=== PATIENT | female | born 1970 | race Caucasian/White ===

== ENCOUNTER 2019-10-31 17:47 | Outpatient (CLI) | payer OTHER, SELFPAY | END 2019-10-31 17:48 | disposition home or self-care (01) | PROVIDERS: Visit Provider Surgery | DX: Z01.812 Encounter for preprocedural laboratory examination (principal) | CPT/HCPCS: 36415; 86850; 86900; 86901 ==

== ENCOUNTER 2019-11-06 00:42 | Outpatient (CLI) | payer OTHER, SELFPAY ==
[2019-11-06 17:00] LABS: SARS-CoV-2 RNA PCR Negative
== END 2019-11-06 00:43 | disposition home or self-care (01) ==
LOC: ANHCOVIDDT 00:42
PROVIDERS: Visit Provider Surgery
DX: Z20.828 Contact with and (suspected) exposure to other viral communicable diseases (principal); Z01.812 Encounter for preprocedural laboratory examination
CPT/HCPCS: 87635; C9803; U0003

== ENCOUNTER 2019-11-08 00:58 | Day surgery (SDC) | payer OTHER, SELFPAY ==
[2019-10-26 09:00] VITALS: BMI 20.3
[2019-11-08] VITALS (9 sets, daily range): BP systolic 100–136; BP diastolic 65–87; PULSE 65–110; RESP 12–14; TEMP 36.2–36.9; O2SAT 96–100
[2019-11-08] MEDS: LACTATED RINGERS 1,000 ML 30 ML IV CONT ×2 (10:05→12:37)
--- NOTE | 2019-11-08 10:14 | WPDANESEPPF ---
Anes - Initial Pre Proc Eval Procedure: Operation Date: 11/08/19 11:30 Proposed Procedures p Laparoscopic Right Inguinal Hernia Repair With Mesh, Davinci Assisted - Art Mccauley DO Date/Time: 11/08/19 10:14 Surgeon: Art Mccauley DO Pre Op Diagnosis: right inguinal hernia Patient Data Age: 48 Gender: F Height: 5 ft 7 in Weight: 58.97 kg Allergies Allergy/AdvReac Type Severity Reaction Status Date / Time ibuprofen Allergy Unknown Hives / Verified 10/26/19 09:01 Red Face Home Medications Medication Instructions Recorded Confirmed Type clonazepam 1 mg tablet 0.5 mg PO QPM 10/20/19 11/08/19 History sertraline 100 mg tablet 100 mg PO QPM 10/20/19 11/08/19 History Patient hx anesthesia problems: none Family hx anesthesia problems: none [facility] Past Medical History Medical History (Updated 11/08/19 @ 10:14 by Silvio Corley MD) Anxiety Depression Surgical History Surgical History Colonoscopy planned 2018 x2 H/O lymph node biopsy 2016 H/O myringotomy 1977 History of laparoscopy 1999 Social History Social History Smoking status: Former smoker Tobacco type: cigarettes Alcohol intake: current Substance use: never Additional occupation/education comments: [employer] Gender identity (if verbalized by the patient): Female Anes - Eval Final PreProcedure Day of Procedure 11/08/19 10:14 Patient weight: normal Heart: regular rate and rhythm Lungs: clear to auscultation Airway: Mallampati scale class III Neurological: alert and oriented Last oral intake: >/= 8 hours ASA classification: II Emergent: no Anesthetic plan: proceed Anesthesia type and monitoring: general ETT and standard monitoring Informed Consent: The patient's anesthetic plan and its attendant risks and benefits were discussed with the patient/family/POA. Questions were solicited and answers provided to the satisfaction of the patient/family/POA.
--- NOTE | 2019-11-08 10:45 | WPDHPUPDATE1 ---
History and Physical Update Update Date/Time: 11/08/19 10:45 History and Physical has been reviewed, including an updated exam of the patient. There are NO changes in the patient's condition. Risks, benefits, and alternatives have been discussed and questions answered. Patient agrees to proceed with procedure.
[2019-11-08] MEDS: ceFAZolin 2 GM/D5W 50 ML 2 GM/50 ML BAG IVPB (11:08)
[2019-11-08] MEDS: BUPIVACAINE/EPINEPHRINE 0.5% 30 ML VIAL INFILTRATE (11:43)
--- NOTE | 2019-11-08 12:28 | PM.PROC ---
Procedure Note - Detailed Date of procedure: 11/08/19 Pre-op diagnosis: right inguinal hernia Post-op diagnosis: same (Indirect right inguinal hernia) Procedure performed: Laparoscopic right inguinal hernia repair with Progrip mesh, da Garrett assisted Description of procedure: Procedure as well as risks, benefits, and alternatives were discussed with the patient. Written consent was obtained and placed in chart prior to procedure. Patient was brought back to surgical suite. She was placed supine on operating table. Time-out was done to confirm patient and procedure. She was then intubated by Anesthesia Department. Her abdomen was prepped and draped in sterile fashion using chlorhexidine prep. 0.5% bupivacaine with epinephrine was infiltrated at each location for incision. A 12 millimeter transverse incision was made just superior to the umbilicus using a 15 blade scalpel. Blunt dissection was carried out down to the linea alba. A vertical incision was made at the linea alba using a 15 blade scalpel. The peritoneum was then bluntly entered. A 12 millimeter trocar was inserted and carbon dioxide insufflation was used to create a pneumoperitoneum. A camera was inserted and the abdominal cavity was inspected. The patient was placed in slight Trendelenburg position. An 8 millimeter incision was made on the right lateral abdomen and an 8 millimeter trocar was inserted under direct visualization. Another 8 millimeter incision was made in the left lateral abdomen and an 8 millimeter trocar was inserted under direct visualization. The robotic arms were brought up to the patient's bedside and secured to the ports. The camera and instruments were inserted. I then moved over to the robotic console and took control of the camera and instruments. After careful inspection of the abdominal cavity, I began scoring the peritoneum along the right lower quadrant using scissors with electrocautery. The preperitoneal plane was entered and this was carefully dissected caudally along the inferior epigastric vessels. Careful dissection with scissors with electrocautery and blunt dissection was used to continue this dissection. I dissected far enough laterally to allow for mesh placement, and also dissected medially to identify the pubic arch and Jorge's ligament. The hernia sac was identified and carefully dissected posteriorly. The round ligament was transected using electrocautery on the right side to allow for adequate mobilization of the hernia sac and peritoneum posteriorly. Once an adequate pocket was created, I then placed the mesh within the preperitoneal pocket and carefully unfolded it. The mesh was centered on the hernia defect with adequate overlap circumferentially. The inferior edge of the mesh was inspected to ensure that it was far enough away from the peritoneal edge. The mesh appeared in proper position overlying the entire myopectineal orifice. The peritoneum was then closed over the mesh using a 3-0 V-lock running absorbable suture. The robotic instruments were removed. The robotic arms were disengaged from the ports and moved away from the bedside. The patient was flattened out in bed, the ports were removed under direct visualization, and the pneumoperitoneum was released. The fascia of the umbilical incision was approximated using an 0 Vicryl [id number] suture. The skin of the incisions was approximated using 4-0 Monocryl subcuticular suture, and Exofin glue was applied on top. The patient was awakened from anesthesia, extubated, and transferred to recovery. Implants: Progrip Mesh 10cm x 15cm Anesthesia: GETA and local (0.5% bupivicaine with epi) Surgeon: Art Mccauley DO Estimated blood loss (mL): 5 Drains: No Packing: No Pathology: none sent Complications: No immediate complications Condition: stable Disposition: same day Findings: Rosi is a 48 y/o female who presents with right sided abdominal pain after BM's. She reports experi
[2019-11-08] MEDS: HYDROMORPHONE HCL 1 MG/ML INJ 0.5 MG IV PUSH ×2 (13:11→13:19)
--- NOTE | 2019-11-08 13:39 | SUR.PHASEI ---
SPOUSE UPDATED. PT READY TO GO TO [facility]
== END 2019-11-08 14:51 | disposition home or self-care (01) ==
PROVIDERS: Visit Provider Surgery
PROC: 8E0Y4CZ Robotic Assisted Procedure of Lower Extremity, Percutaneous Endoscopic Approach (ICD-10-PCS; CPT 49650; principal; 2019-11-08 11:30)
DX: K40.90 Unilateral inguinal hernia, without obstruction or gangrene, not specified as recurrent (principal); F41.8 Other specified anxiety disorders; Z87.891 Personal history of nicotine dependence
CPT/HCPCS: 49650; S2900; A9270; C1781; J0330; J0690; J1100; J1170; J2250; J2405; J2704; J2710; J3010; J7120

== ENCOUNTER → 2020-01-11 08:10 | Outpatient (CLI) | payer OTHER, SELFPAY ==
--- NOTE | ~2020-01-11 | US_ITS ---
EXAMINATION: US abdomen limited DATE: 01/11/2020 08:43 INDICATION: Bloating and abdominal pain, right upper quadrant pain TECHNIQUE: Multiple grayscale and Doppler ultrasound images of the abdomen were obtained. COMPARISON: 11/11/2017 FINDINGS: The head, body, and tail of the pancreas are normal. The liver is normal with normal echoge nicity and echotexture. No surface nodularity. Normal hepatopetal flow in the main portal vein. The g allbladder is normal with no abnormal wall thickening, pericholecystic fluid or stones. The normal co mmon bile duct measures 3 mm. There was no sonographic Tiwari sign. IMPRESSION: 1. Normal sonographic study of the gallbladder. Reviewed, dictated and finalized at location A.
== END ==
PROVIDERS: Visit Provider Surgery
DX: R10.31 Right lower quadrant pain (principal); R14.0 Abdominal distension (gaseous)
CPT/HCPCS: 76705

== ENCOUNTER 2020-02-15 08:37 | Outpatient (CLI) | payer OTHER, SELFPAY ==
--- NOTE | ~2020-02-15 | NM_ITS ---
EXAMINATION: NM hepatobiliary w pharm DATE: 02/15/2020 11:43 INDICATION: Unspecified abdominal pain. COMPARISON: Ultrasound 01/11/2020, CT abdomen and pelvis 12/28/2016 TECHNIQUE: 5 mCi Tc-99m mebrofenin (Choletec) was administered intravenously. Scintigraphic images o f the abdomen were obtained for one hour. Then, 1 mcg sincalide (Kinevac) IV was administered, and im aging was continued for 30 minutes. FINDINGS: There is normal clearance of radiotracer from the blood pool. There is homogeneous tracer u ptake by the liver. Activity progresses to the bowel and gallbladder. Gallbladder ejection fraction (GBEF) was 57%. Note that most patients with gallbladder dysfunction have GBEF < 35%, which overlaps with the broad normal range of 10-90%. IMPRESSION: 1. Normal hepatobiliary scintigraphy. Reviewed, dictated and finalized at location A.
== END 2020-02-15 08:38 | disposition home or self-care (01) ==
LOC: ANHIMG 08:39
PROVIDERS: Visit Provider Surgery
DX: R10.9 Unspecified abdominal pain (principal)
CPT/HCPCS: 78227; A9537; J2805

== ENCOUNTER → 2020-10-11 07:54 | Outpatient (CLI) | payer OTHER, SELFPAY ==
--- NOTE | ~2020-10-11 | MMUS_ITS ---
EXAMINATION: MM diagnostic conrad BI w brittany, US breast LT limited HISTORY: Follow-up left breast masses TECHNIQUE: Additional 3-D tomosynthesis images of the breasts were performed and synthetic 2-D images were generated. CAD analysis was submitted and interpreted. High resolution Limited left breast ultr asound was performed. COMPARISON: Comparison to multiple prior studies sequentially, with oldest reviewed study dated 06/2017. BREAST PARENCHYMAL COMPOSITION: The breasts are extremely dense, which lowers the sensitivity of mamm ography. FINDINGS: MAMMOGRAPHIC FINDINGS: There are no suspicious masses, calcifications or architectural distortion in either breast to sugges t malignancy. ULTRASOUND: Limited left breast ultrasound: There are multiple simple cysts scattered throughout the left breast. No suspicious masses are visualized by ultrasound to suggest malignancy. IMPRESSION: 1. No evidence for malignancy in either breast. Benign findings. 2. Routine yearly screening mammogram and regular clinical breast examination are recommended. BI-RADS Category 2: Benign finding(s). Reviewed, dictated and finalized at location A. IMPRESSION: 1. No evidence for malignancy in either breast. Benign findings. 2. Routine yearly screening mammogram and regular clinical breast examination a re recommended. BI-RADS Category 2: Benign finding(s).
== END ==
PROVIDERS: Visit Provider Obstetrics & Gynecology Gynecology
DX: R92.8 Other abnormal and inconclusive findings on diagnostic imaging of breast (principal)
CPT/HCPCS: 76642; 77062; 77066; G0279

== ENCOUNTER → 2021-04-22 08:29 | Outpatient (CLI) | payer OTHER, SELFPAY ==
--- NOTE | ~2021-04-22 | MR_ITS ---
EXAMINATION: MR hip RT wo con DATE: 04/22/2021 09:22 INDICATION: Unilateral primary osteoarthritis of the right hip. TECHNIQUE: Magnetic resonance imaging (MRI) of the right hip was performed without intravenous contr ast. Sequences included full-field axial PD-weighted FS FSE and T1-weighted FSE, coronal of the pelvi s with PD-weighted FS FSE, T2-weighted FSE and T1-weighted FSE, small field of view of the right hip with axial PD-weighted FS FSE, sagittal PD-weighted FS FSE, coronal PD-weighted FS FSE and coronal T2 weighted FSE. Additional radial T1-weighted FGR oriented orthogonal to the acetabular rim were obt ained for evaluation of the labrum. COMPARISON: None FINDINGS: Bones/labrum/cartilage: Alignment is normal. No fracture, avascular necrosis or pathologic marrow replacing process. Small l inear tear at the base of the anterosuperior the superolateral right acetabular labrum which appears to extend a short distance into the cartilage along the rim of the acetabulum. More irregular degener ative tearing of the posterosuperior labrum. Partial-thickness cartilage loss with suggestion of mikie e chondral surface irregularity at the anterosuperior and posterosuperior aspects of the joint space. Small marginal osteophytes are present about the femoral head. Severe disc height loss with degenera tive endplate changes at L5-S1. Fluid: Symmetric physiologic amount of fluid within both hip joints. Soft tissues: Normal and symmetric muscle bulk and signal in the pelvis and visualized proximal thighs. The iliopso as, gluteal and proximal hamstring tendons are normal. Limited evaluation of visceral organs of the p angela is unremarkable. No pathologically enlarged pelvic/inguinal lymphadenopathy. IMPRESSION: 1. Mild right hip osteoarthritis with diffuse labral tear which extends into the adjacent articular c artilage along the rim of the anterosuperior and superolateral acetabulum. Reviewed, dictated and finalized at location A. UTER SYSTEMS SECURITY ANALYST IMPRESSION: 1. Mild right hip osteoarthritis with diffuse labral tear which extends into th e adjacent articular cartilage along the rim of the anterosuperior and superola teral acetabulum.
== END ==
PROVIDERS: Visit Provider Orthopaedic Surgery
DX: M16.11 Unilateral primary osteoarthritis, right hip (principal)
CPT/HCPCS: 73721

== ENCOUNTER 2021-07-05 02:14 | Emergency (ER) | payer OTHER, SELFPAY ==
--- NOTE | ~2021-07-05 | CT_ITS ---
EXAMINATION: CT IAC/mastoids BI w con DATE: 07/05/2021 04:22 INDICATION: Right mastoid pain. TECHNIQUE: Computed tomography (CT) of the temporal bones was performed with 75 mL Omnipaque 350 intr avenous contrast. Automated exposure control and iterative reconstruction technique were employed. e dose-length product was 258.42 mGy-cm. COMPARISON: Head CT 12/29/2014 FINDINGS: RIGHT TEMPORAL BONE: The internal auditory canal, cochlea, vestibule, semicircular canals, vestibular aqueduct, carotid ca nal, jugular bulb, facial nerve course, ossicles, Prussak space, scutum, mastoid air cells, and exter nal auditory canal are normal. There is mild thickening of the tympanic membrane. LEFT TEMPORAL BONE: The internal auditory canal, cochlea, vestibule, semicircular canals, vestibular aqueduct, jugular bu lb, carotid canal, ossicles, tympanic membrane, facial nerve course, scutum, Prussak space, and exter nal auditory canal are normal. There is a trace left mastoid effusion. IMPRESSION: 1. Mild thickening of right tympanic membrane. Reviewed, dictated and finalized at location E. MILL SUPERVISOR
[2021-07-05 02:21] VITALS: BP 148/99; PULSE 79; RESP 18; TEMP 36.1; O2SAT 100
[2021-07-05] MEDS: MORPHINE SULFATE (*CRX) 4 MG/ML INJ IV PUSH (03:16)
[2021-07-05 03:39] LABS: Anion Gap 9 mmol/L (8-16); Blood Urea Nitrogen 10 mg/dL (7-17); Calcium 9.3 mg/dL (8.4-10.2); Carbon Dioxide 30 mmol/L (22-30); Chloride 98 mmol/L (98-107); Estimated CRCL calculation 78 ml/min; Estimated Glomerular Filt Rate > 60; Glucose 110 mg/dL (65-110); Potassium 3.7 mmol/L (3.4-5.0); Sodium 137 mmol/L (137-145)
[2021-07-05 03:47] LABS: Basophils Absolute Auto 0.1 K/mm3 (0.0-0.1); Basophils Percent Auto 0.8 % (0.2-1.2); Eosinophils Absolute Auto 0.3 K/mm3 (0-0.3); Eosinophils Percent Auto 4.1 % (0-4.4); Hematocrit 42.2 % (37.0-47.0); Immature Granulocyte Absolute 0.01 K/mm3 (0.00-0.031); Immature Granulocyte Percent A 0.1 % (0-0.5); Lymphocytes Absolute Auto 3.05 K/mm3 (0.9-3.2); Lymphocytes Percent Auto 39.1 % (18.3-44.2); Mean Corpuscular HGB Conc 33.2 g/dl (32-36); Mean Corpuscular Hemoglobin 30.9 pg (26-34); Mean Corpuscular Volume 93.2 fl (80-100); Mean Platelet Volume 8.5 fl (7.4-10.4); Monocytes Absolute Auto 0.6 K/mm3 (0.1-0.6); Monocytes Percent Auto 8.2 % (2.6-8.5); Neutrophils Absolute Auto 3.7 K/mm3 (1.3-6.7); Neutrophils Percent Auto 47.7 % (45.5-73.1); Platelet Count Result 271 k/mm3 (150-375); Red Blood Count 4.53 M/mm3 (4.2-5.4); Red Cell Distribution Width 12.2 % (11.5-14.5); White Blood Count 7.8 K/mm3 (4.5-10.0)
[2021-07-05 04:27] VITALS: BP 141/90; PULSE 67; RESP 16; O2SAT 99
--- NOTE | 2021-07-05 04:50 | ED.EAR ---
HPI - Ear Problem General Chief complaint: Ear Stated complaint: R ear infection, vomiting Time Seen by Provider: 07/05/21 02:28 History of Present Illness HPI Narrative: Patient is a 50-year-old female who presents ER with right ear pain. Ongoing since March 2021. She has been through 2 rounds of antibiotics. Initially she was on Augmentin, she was then placed on Cleocin with a topical antibiotic drop as well in April. Since then discomfort is persisted. She is scheduled to follow-up with ENT at [facility] in 1 week. She reports the pain has been increasing over the last few days and she cannot tolerate it. She has trouble laying down to go to sleep to the pain. She has tenderness behind the right ear into the muscles of the neck. She reports she has had persistent tingling/numbness of her right face. No difficulty speaking or eating/drinking. Has not noted any swelling behind her ear. Reports hearing is muffled in the affected ear. Related Data Home Medications Medication Instructions Recorded Confirmed clonazepam 1 mg tablet 0.5 mg PO QPM 10/20/19 04/25/21 sertraline 100 mg tablet 100 mg PO QPM 10/20/19 04/25/21 acetaminophen 500 mg capsule 500 mg PO Q6H PRN 01/05/20 04/25/21 Allergies Allergy/AdvReac Type Severity Reaction Status Date / Time ibuprofen Allergy Unknown Hives / Verified 04/25/21 13:07 Red Face Review of Systems Review of Systems: All systems reviewed & are unremarkable except as noted in HPI and below Constitutional: Constitutional: Denies chills, Denies fever(s) and Denies weakness ENT: Denies nasal congestion and Denies sore throat Comments: Muffled hearing right side with ear pain. Cardiovascular: Cardiovascular: Denies chest pain, Denies rapid heart rate and Denies radiating jaw, neck or arm pain Respiratory: Respiratory: Denies cough and Denies dyspnea Gastrointestinal: Gastrointestinal: Reports nausea and Reports vomiting Neurologic: Denies vertigo, Denies headache(s), Denies focal weakness and Reports numbness PMFSH Past Medical History Medical History (Updated 07/05/21 @ 06:15 by Hector Willett MD) Anxiety Depression Surgical History Surgical History Colonoscopy planned 2018 x2 H/O lymph node biopsy 2015 H/O myringotomy 1977 History of laparoscopy 1999 History of right inguinal hernia laparoscopic right inguinal hernia repair with Progrip mesh, daVinci assisted 11/08/19 Family History Family History Father Parkinson disease Grandparent Hypertension Grandparent Cancer Coronary artery disease Social History Social History Smoking status: Current every day smoker Tobacco type: cigarettes Alcohol intake: current Substance use: never Additional occupation/education comments: [employer] Gender identity (if verbalized by the patient): Female Exam Narrative: GENERAL: Well-appearing, well-nourished, and in no acute distress. HEAD: Normocephalic, atraumatic. EYES: PERRL and EOMI. ENT: Mucous membranes moist. Questionable erythema over the right mastoid that is not warm. There is no swelling of the mastoid on the right side. External ear normal in appearance. The right ear canal is free of debris. The tympanic membrane on the right has some discoloration over the inferior anterior aspect without drainage. No effusion noted. No posterior auricular lymph nodes palpated. NECK: Supple. Full range of motion. CHEST: Clear to auscultation. No respiratory distress. HEART: Regular rate and rhythm. Normal peripheral pulses.. EXTREMITIES: Normal range of motion. No edema.. NEURO: No facial droop, symmetric smile and closing of the eyes and lifting of the eyebrows. Patient reports decreased sharp touch right forehead/cheek/jaw. Alert and oriented x3. PSYCH: Normal mood an
[2021-07-05 06:07] VITALS: BP 122/87; PULSE 78; RESP 14; O2SAT 98
== END 2021-07-05 06:29 | disposition home or self-care (01) ==
PROVIDERS: Emergency Provider Emergency Medicine
DX: H92.01 Otalgia, right ear (principal); F41.9 Anxiety disorder, unspecified; F32.A Depression, unspecified; F17.210 Nicotine dependence, cigarettes, uncomplicated
CPT/HCPCS: 36415; 70481; 80048; 85025; 96374; 99284; J2270; Q9967

== ENCOUNTER → 2022-01-08 09:11 | Outpatient (CLI) | payer OTHER, SELFPAY ==
--- NOTE | ~2022-01-08 | XR_ITS ---
XR abdomen/kub 1V 01/08/2022 09:54 INDICATION: Microscopic hematuria TECHNIQUE: KUB COMPARISON: None FINDINGS: Bowel gas pattern is normal. There is no evidence of free air, mass, organomegaly, ascites or obstruction. No abnormal calculi are seen. The bones appear intact. Calcifications in the pelvis are believed to be phleboliths. IMPRESSION: 1: No acute abdominal abnormality identified. Reviewed, dictated and finalized at location B.
--- NOTE | ~2022-01-08 | CT_ITS ---
EXAMINATION: CT abdomen pelvis wo/w con DATE: 01/08/2022 09:54 INDICATION: Microscopic hematuria TECHNIQUE: Computed tomography (CT) of the abdomen and pelvis was performed without and with 130 cc O mnipaque 350 intravenous contrast. The dose-length product was 857.01 mGy-cm. Automated exposure cont rol and iterative reconstruction technique were employed. COMPARISON: CT dated 12/28/2016 FINDINGS: Dependent atelectasis. Heart size normal. No significant pleural or pericardial effusion. T here are pelvic phleboliths. No renal/ureteral stones or hydronephrosis. Nonobstructive bowel pattern . No free air or free fluid. No abnormal pelvic masses. The liver contains a small 8 mm hypovascular lesion right hepatic lobe, most likely benign cyst or he mangioma. The spleen, pancreas, adrenal glands and right kidney are unremarkable. There is a subcenti meter cyst of the left kidney. Ureters are normal in course and caliber. Bladder is unremarkable. Mil d degenerative spondylosis at L5-S1. No acute osseous abnormality. IMPRESSION: 1. No findings to account for patient's hematuria. No acute abdominal abnormality. Reviewed, dictated and finalized at location B. IMPRESSION: 1. No findings to account for patient's hematuria. No acute abdominal abnormali ty.
[2022-01-08 09:33] LABS: Estimated Glomerular Filt Rate > 60
== END ==
PROVIDERS: PCP Nurse Practitioner Family; Visit Provider Nurse Practitioner Family
DX: R31.29 Other microscopic hematuria (principal)
CPT/HCPCS: 74018; 74178; Q9967

== ENCOUNTER → 2023-06-09 12:45 | Outpatient (CLI) | payer OTHER, SELFPAY ==
--- NOTE | ~2023-06-09 | MM_ITS ---
EXAMINATION: MM screening conrad BI w brittany HISTORY: Screening TECHNIQUE: Craniocaudal and mediolateral oblique 3-D tomosynthesis images were obtained and synthetic 2-D images were generated. CAD analysis was submitted and interpreted. COMPARISON: Comparison to multiple prior studies sequentially, with oldest reviewed study dated 06/2017. BREAST PARENCHYMAL COMPOSITION: The breasts are heterogeneously dense, which may obscure small masses . FINDINGS: There is no evidence of suspicious mass, calcification, or architectural distortion to sugg est malignancy in either breast. There has been no suspicious interval change. IMPRESSION: 1. No mammographic evidence of malignancy. 2. Recommend routine screening mammography in one year. BI-RADS Category 1: Negative Reviewed, dictated and finalized at location A. INSPECTOR
== END ==
PROVIDERS: PCP Obstetrics & Gynecology Gynecology; Visit Provider Obstetrics & Gynecology Gynecology
DX: Z12.31 Encounter for screening mammogram for malignant neoplasm of breast (principal)
CPT/HCPCS: 77063; 77067

== ENCOUNTER 2024-02-01 15:45 | Observation (INO) | payer OTHER, SELFPAY ==
--- NOTE | ~2024-02-01 | MR_ITS ---
EXAMINATION: MR cervical spine wo/w con DATE: 02/02/2024 12:49 INDICATION: Multiple sclerosis. TECHNIQUE: Magnetic resonance imaging (MRI) of the cervical spine was performed without and with 14 m L MultiHance intravenous contrast. COMPARISON: None FINDINGS: Bone alignment is normal. Vertebral body heights are normal. Intervertebral disc heights ar e normal. The spinal cord signal intensity is normal. The following disc levels are specifically disc ussed: C2-C3: The disc does not extend beyond the endplate margin. There is no uncovertebral joint osteoarth ritis. There is no facet joint osteoarthritis. There is no neural foraminal stenosis. There is no manjinder tral canal stenosis. C3-C4: The disc does not extend beyond the endplate margin. There is no uncovertebral joint osteoarth ritis. There is mild bilateral facet joint osteoarthritis. There is no neural foraminal stenosis. The re is no central canal stenosis. C4-C5: The disc does not extend beyond the endplate margin. There is no uncovertebral joint osteoarth ritis. There is no facet joint osteoarthritis. There is no neural foraminal stenosis. There is no manjinder tral canal stenosis. C5-C6: The disc does not extend beyond the endplate margin. There is no uncovertebral joint osteoarth ritis. There is no facet joint osteoarthritis. There is no neural foraminal stenosis. There is no manjinder tral canal stenosis. C6-C7: There is a central protrusion. There is no uncovertebral joint osteoarthritis. There is mild b ilateral facet joint osteoarthritis. There is no neural foraminal stenosis. There is no central canal stenosis. C7-T1: The disc does not extend beyond the endplate margin. There is moderate and mild left uncoverte bral joint osteoarthritis. There is mild bilateral facet joint osteoarthritis. There is no neural for aminal stenosis. There is no central canal stenosis. IMPRESSION: 1. Normal spinal cord. 2. Mild cervical spondylosis. Reviewed, dictated and finalized at location A.
--- NOTE | ~2024-02-01 | MR_ITS ---
EXAMINATION: MR thoracic spine wo/w con DATE: 02/02/2024 12:50 INDICATION: Multiple sclerosis. TECHNIQUE: Magnetic resonance imaging (MRI) of the thoracic spine was performed without and with 14 m L MultiHance intravenous contrast. COMPARISON: None FINDINGS: There is kyphosis of thoracic spine. There is mild chronic anterior wedging of T4-T6 verteb ral bodies. There is mildly decreased disc height at T4-T5, T5-T6, T6-T7, and T7-T8. The discs does n ot extend beyond the endplate margins. There is multilevel mild facet joint osteoarthritis. No neural foraminal stenosis or central canal stenosis. The spinal cord signal intensity is normal. The conus medullaris is at L1. IMPRESSION: 1. Normal spinal cord. 2. Mild thoracic spondylosis. Reviewed, dictated and finalized at location A.
--- NOTE | ~2024-02-01 | CT_ITS ---
EXAMINATION: CTA brain carotid DATE: 02/01/2024 18:00 INDICATION: right sided tingling numbness TECHNIQUE: Computed tomographic angiography (CTA) of the head was performed without and with 100 mL O mnipaque-350 intravenous contrast. CTA of the neck was performed with intravenous contrast. Automated exposure control and iterative reconstruction technique were employed. The dose-length product was 1 552.67 mGy-cm. Maximum intensity projection and volume rendered 3D-reconstructions were created by ora matthew technologist on a separate workstation. COMPARISON: CT brain 12/29/2014. FINDINGS: CT BRAIN: No acute large vessel infarct, intracranial hemorrhage, mass, or hydrocephalus. CTA HEAD: No large vessel occlusion, aneurysm, high flow vascular malformation, nidus or extravasation. Symmetr ic parenchymal enhancement. Patent cerebral veins. CTA NECK: Aortic arch and proximal great vessels: Normal arch anatomy. Right common carotid, carotid bifurcation, and internal carotid artery: No plaque.There is 0% stenosi s of the proximal right internal carotid artery relative to normal distal artery lumen diameter (NASC ET criteria). Left common carotid, carotid bifurcation, and internal carotid artery: No plaque.There is 0% stenosis of the proximal left internal carotid artery relative to normal distal artery lumen diameter (NASCET criteria). Vertebral arteries: No significant plaque or stenosis. Left vertebral artery is dominant. Other findings: None. IMPRESSION: No acute intracranial process detected. No large vessel intracranial occlusion, high-grade intracranial stenosis, or aneurysm. No carotid or vertebral artery occlusion, dissection, or significant stenosis. Reviewed, dictated and finalized at location K. IMPRESSION: No acute intracranial process detected. No large vessel intracranial occlusion, high-grade intracranial stenosis, or an eurysm. No carotid or vertebral artery occlusion, dissection, or significant stenosis.
--- NOTE | ~2024-02-01 | XR_ITS ---
EXAMINATION: XR chest 2V Exam Date/Time: 02/01/2024 17:55 CDT HISTORY: cva Comparison: None. RESULT: Lines, tubes, and devices: None. Lungs and pleura: Clear. Cardiomediastinal silhouette: Unremarkable. Other: No acute osseous or upper abdominal finding. IMPRESSION: No acute cardiopulmonary process. Reviewed, dictated and finalized at location K.
--- NOTE | ~2024-02-01 | MR_ITS ---
EXAMINATION: MR brain/brain stem wo/w con DATE: 02/02/2024 12:49 INDICATION: Right face paresthesias. TECHNIQUE: Magnetic resonance imaging (MRI) of the brain and brainstem was performed without and with 14 mL MultiHance intravenous contrast. COMPARISON: Head CT 02/01/2024 FINDINGS: There are 4 small foci of increased T2-weighted signal intensity in the cerebral white rodolfo er, which is normal for the patient's age. There is no intracranial hemorrhage, acute infarction, or abnormal intracranial mass lesion. The ventricles are normal in size. The orbits are normal. The para nasal sinuses are clear. The mastoid air cells are normal. IMPRESSION: 1. Normal brain. Reviewed, dictated and finalized at location A. IMPRESSION: 1. Normal brain.
[2024-02-01 15:50] VITALS: BP 145/100; PULSE 99; RESP 18; TEMP 37; O2SAT 99
--- NOTE | 2024-02-01 17:17 | ECG_ITS ---
Test Date: 2024-02-01 19:59:25 Measurements Intervals [place] Rate: 71 P: 56 AR: 164 QRS: 48 QRSD: 86 T: 59 QT: 378 QTc: 413 Interpretive Statements SINUS RHYTHM RSR' IN V1 OR V2, PROBABLY NORMAL VARIANT BASELINE WANDER- II, III, AVR, AVL, AVF BORDERLINE ECG No previous ECG available for comparison Electronically Signed On 02-02-2024 06:15:32 CDT by Ayan Hagan D.O.
--- NOTE | 2024-02-01 17:18 | ED.NEUROSD ---
HPI - Neuro Symptoms/Deficit General Chief Complaint: Neuro Symptoms/Deficit <Chloe Adhikari PA-C - Last Filed: 02/01/24 17:25> Stated Complaint: facial numbness <Chloe Adhikari PA-C - Last Filed: 02/01/24 17:25> Time Seen by Provider: 02/01/24 20:12 <Chloe Adhikari PA-C - Last Filed: 02/01/24 17:25> Focused HPI: 53-year-old female presents to the emergency department for right facial numbness, tingling and pain for over a month. Patient states she saw her PCP in the beginning of December and was scheduled to have a an outpatient CTA this week for further evaluation. States her symptoms have progressively worsened so she came to the ED for further evaluation. She states she is also having some tingling in her right upper and lower extremities, as well as pain to the right side of her neck. She denies head injury or trauma, vision changes, focal weakness, fever, chest pain or shortness of breath. No history of CVA or TIA. GENERAL: Well-appearing, well-nourished, and in no acute distress. HEAD: Normocephalic, atraumatic. CHEST: Clear to auscultation. ?No respiratory distress. HEART: Regular rate and rhythm.? NEURO: ?Alert and oriented x3. Decreased sensation in V1, V2 and V3 distribution as well as decreased sensation in the right upper extremity and right lower extremity. Cranial nerves II-XII otherwise intact. Strength 5/5 in BUE and BLE. Normal [id number]. No pronator drift. Patient screened in triage and initial orders placed.? ?Additional care and disposition to be based upon?diagnostic testing and treatment. <Chloe Adhikari PA-C - Last Filed: 02/01/24 17:25> History of Present Illness HPI Narrative: Patient is a 53-year-old female who presents emergency department with chief complaint of right-sided facial numbness and tingling patient reports that this been ongoing for over a month reports he has seen her primary care provider who was scheduling her for a CTA but has not been able to have that done yet. The patient states she started having some tingling on the right side of her tongue <Dilip Biswas MD - Last Filed: 02/01/24 21:52> Related Data Home Medications: Home Medications Medication Instructions Recorded Confirmed clonazepam 1 mg tablet (Klonopin) 0.5 mg PO QPM 10/20/19 04/25/21 sertraline 100 mg tablet (Zoloft) 100 mg PO QPM 10/20/19 04/25/21 acetaminophen 500 mg capsule 500 mg PO Q6H PRN 01/05/20 04/25/21 <Chloe Adhikari PA-C - Last Filed: 02/01/24 17:25> Allergies/Adverse Reactions: Allergies Allergy/AdvReac Type Severity Reaction Status Date / Time ibuprofen Allergy Unknown Hives / Verified 04/25/21 13:07 Red Face <Chloe Adhikari PA-C - Last Filed: 02/01/24 17:25> Review of Systems Review of Systems: A 10 system review of systems was completed on the patient and is negative except for what is stated in the HPI. Nursing and ancillary documentation was reviewed. <Dilip Biswas MD - Last Filed: 02/01/24 21:52> [facility] Past Medical History Medical History: Medical History (Updated 02/01/24 @ 20:27 by Dilip Biswas MD) Anxiety Depression <Chloe Adhikari PA-C - Last Filed: 02/01/24 17:25> Surgical History Surgical History: Surgical History Colonoscopy planned 2018 x2 H/O lymph node biopsy 2016 H/O myringotomy 1977 History of laparoscopy 2000 History of right inguinal hernia laparoscopic right inguinal hernia repair with Progrip mesh, daVinci assisted 11/08/19 <Chloe Adhikari PA-C - Last Filed: 02/01/24 17:25> Family History Family History: Family History Father Parkinson disease Grandparent Hypertension Grandparent Cancer Coronary artery disease <Chloe Adhikari PA-C - Last Filed: 02/01/24 17:25> Social History S
[2024-02-01 17:31] LABS: Basophils Percent Auto 0.3 % (0.2-1.2); Eosinophils Absolute Auto 0.3 K/mm3 (0-0.3); Eosinophils Percent Auto 3.8 % (0-4.4); Hematocrit 44.1 % (37.0-47.0); Hemoglobin 14.2 g/dL (12.0-15.0); Immature Granulocyte Absolute 0.02 K/mm3 (0.00-0.031); Immature Granulocyte Percent A 0.2 % (0-0.5); Lymphocytes Absolute Auto 2.36 K/mm3 (0.9-3.2); Mean Corpuscular HGB Conc 32.2 g/dl (32-36); Mean Corpuscular Volume 90.2 fl (80-100); Mean Platelet Volume 8.4 fl (7.4-10.4); Monocytes Absolute Auto 0.7 K/mm3 (0.1-0.6); Monocytes Percent Auto 7.8 % (2.6-8.5); Neutrophils Absolute Auto 5.6 K/mm3 (1.3-6.7); Neutrophils Percent Auto 61.9 % (45.5-73.1); Platelet Count Result 286 k/mm3 (150-375); Red Blood Count 4.89 M/mm3 (4.2-5.4); Red Cell Distribution Width 12.6 % (11.5-14.5); White Blood Count 9.1 K/mm3 (4.5-10.0)
[2024-02-01 17:43] LABS: INR 0.9; Prothrombin Time 12.3 Seconds (11.1-14.7)
[2024-02-01 17:44] LABS: Alanine Aminotransferase 12 U/L (6-35); Albumin Level 4.5 g/dL (3.5-5.1); Alkaline Phosphatase 73 U/L (38-126); Anion Gap 8 mmol/L (4-12); Aspartate Amino Transferase 23 U/L (14-36); Bilirubin,Total 0.3 mg/dL (0.2-1.3); Blood Urea Nitrogen 9 mg/dL (7-17); Calcium 9.1 mg/dL (8.4-10.2); Carbon Dioxide 29 mmol/L (22-30); Chloride 101 mmol/L (98-107); Estimated CRCL calculation 90 ml/min; Estimated Glomerular Filt Rate > 60; Glucose 110 mg/dL (65-110); Potassium 3.8 mmol/L (3.4-5.0); Sodium 138 mmol/L (137-145)
[2024-02-01 18:00] LABS: Troponin I < 0.012 ng/mL (0.000-0.034)
[2024-02-01 19:34] VITALS: BP 129/94; PULSE 87; RESP 16; TEMP 36.6; O2SAT 98
[2024-02-01 19:58] VITALS: BP 132/89; PULSE 77; RESP 16; O2SAT 99
--- NOTE | 2024-02-01 20:07 | PC.NURSE ---
NIH 1 d/t decreased sensation in RUE and RLE. LKW >1 month ago. POC B.S. cancelled d/t resulting glucose WNL.
--- NOTE | 2024-02-01 20:13 | PC.NURSE ---
Pt given a urine cup and educated that provider would like a urine sample when possible.
--- NOTE | 2024-02-01 21:47 | PM.IMHP ---
H&P: HPI History of Present Illness Date/Time: 02/01/24 21:47 Chief Complaint: RIGHT FACE PAIN Narrative: THIS IS A 53-YEAR-OLD FEMALE WITH PAST MEDICAL HISTORY SIGNIFICANT FOR DEPRESSION. PATIENT COMES TO THE EMERGENCY ROOM DUE TO SEVERAL WEEKS OF RIGHT-SIDED OF THE FACE PAIN NUMBNESS TINGLING SENSATION. PATIENT DENIES ANY RASHES, JOINT PAIN, VISION CHANGES Review of Systems Review of Systems: Right-side of the face paresthesia, pain PMFSH Past Medical History Medical History (Updated 02/01/24 @ 20:27 by Dilip Biswas MD) Anxiety Depression Surgical History Surgical History Colonoscopy planned 2019 x2 H/O lymph node biopsy 2016 H/O myringotomy 1977 History of laparoscopy 1999 History of right inguinal hernia laparoscopic right inguinal hernia repair with Progrip mesh, daVinci assisted 11/08/19 Family History Family History Father Parkinson disease Grandparent Hypertension Grandparent Cancer Coronary artery disease Social History Social History Years smoked: 5 Smoking status: Former smoker Tobacco type: cigarettes Alcohol intake: current Drinks per week: 2 Substance use: never Substance use type: does not use Do You Feel Safe in your Home?: Yes Lack of Transportation: No Lack of Food: Never True Current Housing: I Have Housing Concerned About Future Housing: No Difficulty Paying Gas/Electric Bills: No Difficulty Paying for Meds: No Currently Unemployed: No Education: Associate Degree Difficulty w/ Childcare or Family Care: No Living arrangements: with family Occupation/Education: occupation Additional occupation/education comments: [employer] Gender identity (if verbalized by the patient): Female Spiritual care concerns: No Meds Home Medications and Allergies Home Medications Medication Instructions Recorded Confirmed Type clonazepam 1 mg tablet (Klonopin) 0.5 mg PO QPM 10/20/19 02/01/24 History sertraline 100 mg tablet (Zoloft) 100 mg PO QPM 10/20/19 02/01/24 History Allergies Allergy/AdvReac Type Severity Reaction Status Date / Time ibuprofen Allergy Unknown Hives / Verified 02/01/24 22:02 Red Face Vital Signs Vital Signs - 24 hr 02/01/24 15:50 02/01/24 19:34 02/01/24 19:58 Temperature 98.6 F 97.8 F Pulse Rate 99 87 77 Respiratory Rate 18 16 16 Blood Pressure 145/100 H 129/94 H 132/89 Pulse Oximetry 99 98 99 Exam Narrative: Sitting in a stretcher Const: General: comfortable, no acute distress, well developed, alert, awake and average body habitus Nutritional Appearance: average body habitus Orientation/consciousness: patient oriented x3 Other: Well-appearing HENMT: Head: normal to inspection, normocephalic and atraumatic Ears: hearing grossly normal bilaterally Face/Nose/Sinus: normal facial exam Face and sinus: normal facial exam Eyes: General: appearance normal, both eyes and all related structures Pupils: Equal, round and reactive pupils present EOM: EOMs intact bilaterally Neck: Neck: full ROM, no lymphadenopathy and no JVD Thyroid: thyroid normal Lymphatic: no lymphadenopathy noted Resp: Effort & Inspection: normal respiratory effort and able to speak in complete sentences Auscultation: clear to auscultation bilaterally Cardio: Jugular venous distension: no JVD Rate: regular rate Rhythm: regular rhythm Heart sounds: S1 normal heart sound present and S2 normal heart sound present GI: GI Palp: Yes Soft to palpation and Yes No hepatosplenomegaly present : General: Yes deferred Skin: Rashes: no rashes Wounds: no wounds Neuro: General: patient oriented x3 and CN's II-XI intact bilaterally Cranial nerves: Yes CN's II-XII intact bilaterally and Yes Equal, round and reactive pupils pr
[2024-02-02] VITALS: PULSE 74; PULSE 75; RESP 18; O2SAT 98; BMI 22.8
--- NOTE | 2024-02-02 00:03 | PC.NURSE ---
This patient was admitted to room 244. Patient/family oriented to hospital policies and general routines including ID bracelet, bed and alarms, visiting hours, pain management, procedures, bathroom and other care routines, personal items, smoking policy, room service/diet, and visiting hours. Information on how to activate the Rapid Response Team has been discussed. Patient/Family are encouraged to report perceived risks to care and to ask questions if they do not understand what they are told or what they should do.
[2024-02-02 00:04] VITALS: BP 134/84; PULSE 74; RESP 18; TEMP 36.7; O2SAT 98
[2024-02-02] MEDS: ACETAMINOPHEN 500 MG TABLET 1000 MG PO (00:35)
[2024-02-02] MEDS: GABAPENTIN 300 MG CAPSULE PO (01:07)
[2024-02-02 04:00] VITALS: PULSE 70
[2024-02-02 06:00] VITALS: BP 109/59; PULSE 68; RESP 14; TEMP 37.1; O2SAT 100
[2024-02-02 08:00] VITALS: PULSE 76
--- NOTE | 2024-02-02 08:12 | PM.IMPN ---
Progress Note: A&P Assessment and Plan (1) Paresthesia: Code(s): R20.2 - Paresthesia of skin Status: Acute Assessment and Plan: Placed in observation MRI of the brain in the morning Neurology consult (2) Chronic constipation: Code(s): K59.09 - Other constipation Status: Acute Assessment and Plan: Bowel regimen Plan DVT prophylaxis: SCD Time Spent With Patient Time with patient: Greater than 35 minutes Subjective Date/time seen: 02/02/24 08:12 Interval history: Narrative retrieved from H/P: THIS IS A 53-YEAR-OLD FEMALE WITH PAST MEDICAL HISTORY SIGNIFICANT FOR DEPRESSION. PATIENT COMES TO THE EMERGENCY ROOM DUE TO SEVERAL WEEKS OF RIGHT-SIDED OF THE FACE PAIN NUMBNESS TINGLING SENSATION. PATIENT DENIES ANY RASHES, JOINT PAIN, VISION CHANGES 02/01- pt is seen and examined. She is in bed- denies any new/acute complains. neurology is following. MRI is ordered. Review of Systems Review of Systems: Right-side of the face paresthesia, headache Genitourinary: Genitourinary: Denies hematuria Musculoskeletal: Musculoskeletal: Denies back pain and Denies myalgias Psychiatric: Psychiatric: Denies anxiety and Denies confusion Exam Narrative: Sitting in a stretcher Const: General: comfortable, no acute distress, well developed, alert, awake and average body habitus Nutritional Appearance: average body habitus Orientation/consciousness: patient oriented x3 Other: Well-appearing HENMT: Head: normal to inspection, normocephalic and atraumatic Ears: hearing grossly normal bilaterally Face/Nose/Sinus: normal facial exam Face and sinus: normal facial exam Eyes: General: appearance normal, both eyes and all related structures Pupils: Equal, round and reactive pupils present EOM: EOMs intact bilaterally Neck: Neck: full ROM, no lymphadenopathy and no JVD Thyroid: thyroid normal Lymphatic: no lymphadenopathy noted Resp: Effort & Inspection: normal respiratory effort and able to speak in complete sentences Auscultation: clear to auscultation bilaterally Cardio: Jugular venous distension: no JVD Rate: regular rate Rhythm: regular rhythm Heart sounds: S1 normal heart sound present and S2 normal heart sound present : General: Yes deferred Skin: Rashes: no rashes Wounds: no wounds Neuro: General: patient oriented x3 and CN's II-XI intact bilaterally Cranial nerves: Yes CN's II-XII intact bilaterally and Yes Equal, round and reactive pupils present Cognition (Neuro): normal cognition Speech: normal speech Gait exam (Neuro): Normal gait present Motor exam (neuro): 5/5 motor strength present throughout Extrem: General: normal to inspection, full ROM, no joint enlargement and no pedal edema Objective Data Vital Signs Vital Signs: Vital Signs - 24 hr 02/01/24 15:50 02/01/24 19:34 02/01/24 19:58 Temperature 98.6 F 97.8 F Pulse Rate 99 87 77 Respiratory Rate 18 16 16 Blood Pressure 145/100 H 129/94 H 132/89 Pulse Oximetry 99 98 99 Oxygen Delivery 02/02/24 00:00 02/02/24 00:04 02/02/24 00:00 Temperature 98.1 F Pulse Rate 74 74 75 Respiratory Rate 18 18 Blood Pressure 134/84 Pulse Oximetry 98 98 Oxygen Delivery Room Air 02/02/24 04:00 02/02/24 06:00 Temperature 98.7 F Pulse Rate 70 68 Respiratory Rate 14 Blood Pressure 109/59 L Pulse Oximetry 100 Oxygen Delivery Intake/Output Intake/Output: Intake & Output 01/30/24 01/31/24 02/01/24 02/02/24 23:59 23:59 23:59 23:59 Output Total 100 Balance -100 Meds/Results Medications: Active Medications Generic Name Dose Route Start Last Admin Trade Name Freq PRN Reason Stop Dose Admin Clonazepam 0.5 mg 02/02/24 18:00 Clonazepam (*Crx) 0.5 Mg Tablet PO QPM LITA Polyethylene Glycol 17 gm 02/02/24 05:22 Polyethylene Glycol 3350 17 Gm Powd.Pack PO QAM PRN Constipation Sertraline HCl 100 mg 02/02/24 18:00 Sertraline Hc
[2024-02-02 08:39] LABS: Basophils Percent Auto 0.5 % (0.2-1.2); Eosinophils Absolute Auto 0.2 K/mm3 (0-0.3); Eosinophils Percent Auto 3.5 % (0-4.4); Hematocrit 40.9 % (37.0-47.0); Hemoglobin 13.3 g/dL (12.0-15.0); Immature Granulocyte Absolute 0.03 K/mm3 (0.00-0.031); Immature Granulocyte Percent A 0.5 % (0-0.5); Lymphocytes Absolute Auto 1.86 K/mm3 (0.9-3.2); Lymphocytes Percent Auto 29.2 % (18.3-44.2); Mean Corpuscular HGB Conc 32.5 g/dl (32-36); Mean Corpuscular Hemoglobin 29.6 pg (26-34); Mean Corpuscular Volume 90.9 fl (80-100); Mean Platelet Volume 8.6 fl (7.4-10.4); Monocytes Absolute Auto 0.5 K/mm3 (0.1-0.6); Monocytes Percent Auto 8.2 % (2.6-8.5); Neutrophils Absolute Auto 3.7 K/mm3 (1.3-6.7); Neutrophils Percent Auto 58.1 % (45.5-73.1); Platelet Count Result 251 k/mm3 (150-375); Red Cell Distribution Width 12.5 % (11.5-14.5); White Blood Count 6.4 K/mm3 (4.5-10.0)
[2024-02-02 08:54] LABS: Alanine Aminotransferase 11 U/L (6-35); Albumin Level 3.7 g/dL (3.5-5.1); Alkaline Phosphatase 64 U/L (38-126); Anion Gap 7 mmol/L (4-12); Aspartate Amino Transferase 22 U/L (14-36); Bilirubin,Total 0.4 mg/dL (0.2-1.3); Blood Urea Nitrogen 9 mg/dL (7-17); Calcium 8.7 mg/dL (8.4-10.2); Carbon Dioxide 29 mmol/L (22-30); Chloride 102 mmol/L (98-107); Estimated CRCL calculation 90 ml/min; Estimated Glomerular Filt Rate > 60; Glucose 96 mg/dL (65-110); Potassium 3.6 mmol/L (3.4-5.0); Sodium 138 mmol/L (137-145)
[2024-02-02] MEDS: ACETAMINOPHEN 325 MG TABLET 650 MG PO (10:46)
--- NOTE | 2024-02-02 10:52 | WPDNEURCNPN ---
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 Considering the history of the facial numbness with negative CT scan of the head and negative CTA will obtain the MRI of the brain as well as cervical and thoracic spine to rule out the possibility of demyelinating disease before any further consideration is given to the study such his spinal fluid studies. Discussed with the patient and her all the studies will be done today. Consult date: 02/02/24 HPI: Rosi Waterman is a 53 year old female Admitted to the hospital through the emergency room for the complaints of right facial numbness described as tingling sensation and pain over a month. Patient was scheduled to have CTA as an outpatient for further evaluation but the symptomatology has progressively worsened so she came to the emergency room for further evaluation. She complained of tingling sensation in the right upper and lower extremities as well as pain to the right side of her neck she gave no history of recent or remote trauma, no history of focal weakness, no history of CVA or TIA in the past. Patient has been taking clonazepam 0.5mg every evening, sertraline 100mg every evening, and Tylenol on p.r.n. basis. She is allergic to ibuprofen. And she has been treated for the anxiety with depression. Her family history is positive for the Parkinson's disease, she is currently everyday smoker, and currently alcohol intake, never substance user, initial exam in the emergency room was completely normal, vital signs were normal except blood pressure was 145/100 CTA of the head and neck was normal, without evidence of any intracranial disease or aneurysm, EKG revealed no atrial fibrillation, CBC was normal, BMP was normal, and the mast scan was normal, she was maintained on the same medication overnight, chest x-ray is negative, [facility] Past Medical History Medical History (Updated 02/02/24 @ 11:00 by Oskar Kolb MD) Anxiety Depression Surgical History Surgical History Colonoscopy planned 2018 x2 H/O lymph node biopsy 2015 H/O myringotomy 1976 History of laparoscopy 1999 History of right inguinal hernia laparoscopic right inguinal hernia repair with Progrip mesh, daVinci assisted 11/08/19 Family History Family History Father Parkinson disease Grandparent Hypertension Grandparent Cancer Coronary artery disease Social History Social History Years smoked: 5 Smoking status: Former smoker Tobacco type: cigarettes Alcohol intake: current Drinks per week: 2 Substance use: never Substance use type: does not use Do You Feel Safe in your Home?: Yes Lack of Transportation: No Lack of Food: Never True Current Housing: I Have Housing Concerned About Future Housing: No Difficulty Paying Gas/Electric Bills: No Difficulty Paying for Meds: No Currently Unemployed: No Education: Associate Degree Difficulty w/ Childcare or Family Care: No Living arrangements: with family Occupation/Education: occupation Additional occupation/education comments: [employer] Gender identity (if verbalized by the patient): Female Spiritual care concerns: No Meds Home Medications and Allergies Home Medications Medication Instructions Recorded Confirmed Type clonazepam 1 mg tablet (Klonopin) 0.5 mg PO QPM 10/20/19 02/01/24 History sertraline 100 mg tablet (Zoloft) 100 mg PO QPM 10/20/19 02/01/24 History Allergies Allergy/AdvReac Type Severity Reaction Status Date / Time ibuprofen Allergy Unknown Hives / Verified 02/01/24 22:02 Red Face Vital Signs Vital Signs - 24 hr 01/31
--- NOTE | 2024-02-02 15:16 | PM.DS ---
DS: Admitting Diagnosis Discharge Date 02/01 Admitting Diagnosis facial numbness DS: Discharge Diagnosis Discharge Diagnosis (1) Paresthesia: Code(s): R20.2 - Paresthesia of skin Status: Acute Assessment and Plan: Placed in observation MRI of the brain in the morning Neurology consult (2) Chronic constipation: Code(s): K59.09 - Other constipation Status: Acute Assessment and Plan: Bowel regimen Plan final dx: Paresthesia of skin DVT prophylaxis: SCD DS: Summary Hospital Course Hospital Course: THIS IS A 53-YEAR-OLD FEMALE WITH PAST MEDICAL HISTORY SIGNIFICANT FOR DEPRESSION. PATIENT COMES TO THE EMERGENCY ROOM DUE TO SEVERAL WEEKS OF RIGHT-SIDED OF THE FACE PAIN NUMBNESS TINGLING SENSATION. PATIENT DENIES ANY RASHES, JOINT PAIN, VISION CHANGES she was seen per neurology- mri done- no acute issues- she will be discharged to f/u with neurology as an oupt. Status at Discharge Functional status at discharge: independent ambulation Overall status at discharge: patient is back to baseline Time Spent with Patient Time attestation: Total time spent providing and/or coordinating discharge services: Time spent: Less than 30 minutes Exam Const: General: comfortable, no acute distress, well developed, alert, awake and average body habitus; No confusion Nutritional Appearance: average body habitus Orientation/consciousness: patient oriented x3 and No confusion Other: Well-appearing HENMT: Head: normal to inspection, normocephalic and atraumatic Ears: hearing grossly normal bilaterally Face/Nose/Sinus: normal facial exam Face and sinus: normal facial exam Eyes: General: appearance normal, both eyes and all related structures Pupils: Equal, round and reactive pupils present EOM: EOMs intact bilaterally Neck: Neck: full ROM, no lymphadenopathy and no JVD Thyroid: thyroid normal Lymphatic: no lymphadenopathy noted Resp: Effort & Inspection: normal respiratory effort and able to speak in complete sentences Auscultation: clear to auscultation bilaterally Cardio: Jugular venous distension: no JVD Rate: regular rate Rhythm: regular rhythm Heart sounds: S1 normal heart sound present and S2 normal heart sound present : General: Yes deferred Skin: Rashes: no rashes Wounds: no wounds Neuro: General: patient oriented x3, CN's II-XI intact bilaterally and No confusion Cranial nerves: Yes CN's II-XII intact bilaterally and Yes Equal, round and reactive pupils present Cognition (Neuro): normal cognition Speech: normal speech Gait exam (Neuro): Normal gait present Motor exam (neuro): 5/5 motor strength present throughout Extrem: General: normal to inspection, full ROM, no joint enlargement and no pedal edema DS: Data Data Completed and Pending Completed studies during hospitalization: thoracic spine mri, cervical mri, brain ct Labs on day of discharge: Labs from last 24 hours 02/02/24 02/01/24 08:13 17:21 WBC 6.4 9.1 RBC 4.50 4.89 Hgb 13.3 14.2 Hct 40.9 44.1 MCV 90.9 90.2 MCH 29.6 29.0 MCHC 32.5 32.2 RDW 12.5 12.6 Plt Count 251 286 MPV 8.6 8.4 Immature Gran % (Auto) 0.5 0.2 Neut % (Auto) 58.1 61.9 Lymph % (Auto) 29.2 26.0 Steele % (Auto) 8.2 7.8 Eos % (Auto) 3.5 3.8 Baso % (Auto) 0.5 0.3 Lymph # (Auto) 1.86 2.36 Steele # (Auto) 0.5 0.7 H Eos # (Auto) 0.2 0.3 Baso # (Auto) 0.0 0.0 Abs Immat Gran (auto) 0.03 0.02 Absolute Neuts (auto) 3.7 5.6 Absolute Nucleated RBC 0.000 0.000 Nucleated RBC % 0.0 0.0 PT 12.3 INR 0.9 APTT 26.0 Sodium 138 138 Potassium 3.6 3.8 Chloride 102 101 Carbon Dioxide 29 29 Anion Gap 7 8 BUN 9 9 Creatinine 0.60 L 0.60 L Estim Creat Clear Calc 90 90 Estimated GFR > 60 > 60 Glucose 96 110 Calcium 8.7 9.1 Total Bilirubin 0.4 0.3 AST 22 23 ALT 11 12 Alkaline Phosphatase 64 73 Troponin I < 0.012 Total Protein 7.0 8.0 Albumin 3.7 4.5
== END 2024-02-02 15:51 | disposition home or self-care (01) ==
LOC: ANHED 21:51 → ANH2MED 23:02
PROVIDERS: Nurse Practitioner; Physician Assistant; Admitting Provider Internal Medicine; Emergency Provider Emergency Medicine; Visit Provider Internal Medicine
DX: R20.2 Paresthesia of skin (principal); K59.09 Other constipation; F41.9 Anxiety disorder, unspecified; F32.A Depression, unspecified; F17.210 Nicotine dependence, cigarettes, uncomplicated
CPT/HCPCS: 36415; 70496; 70498; 70553; 71046; 72156; 72157; 80053; 84484; 85025; 85610; 85730; 93005; 99285; A9270; A9577; G0378; Q9967

== ENCOUNTER 2024-11-03 14:14 | Outpatient (CLI) | payer OTHER, SELFPAY ==
--- NOTE | ~2024-11-03 | US_ITS ---
EXAMINATION: US transvaginal INDICATION: Postmenopausal bleeding Comparison:Ultrasound dated 04/30/2018 TECHNIQUE: Multiple transabdominal and endovaginal sonographic images of the pelvis performed. FINDINGS: The uterus measures 5.8 x 3.3 x 4 cm. Uterus is retroverted. There is a small uterine fibro id at the fundus measuring 1 cm. The endometrial complex measures 4 mm. The right ovary measures 1.9 x 1.3 x 1.5 cm and the left ovary measures 1.5 x 1.8 x 1 cm. There are small follicles in each ovary. Normal doppler signal in both ovaries. There is no free fluid in the pelvis. There are no abnormal masses seen on either side. IMPRESSION: 1. Small uterine fibroid at the fundus measuring 1 cm. Uterus is retroverted. Reviewed, dictated and finalized at location B.
== END 2024-11-03 14:15 | disposition home or self-care (01) ==
LOC: MICIMG 14:15
PROVIDERS: PCP Nurse Practitioner; Visit Provider Nurse Practitioner
DX: N95.0 Postmenopausal bleeding (principal); D25.9 Leiomyoma of uterus, unspecified
CPT/HCPCS: 76830